=== PATIENT | female | born 1980 | race Caucasian/White ===

== ENCOUNTER 2020-12-17 01:43 | Emergency (ER) | payer OTHER ==
[~2020-12-17 01:43] MED LIST: NORCO 7.5-3251 EACH PO
[2020-12-17 02:43] LABS: HEMOGLOBIN 13.1 gm/dl (12.3-15.3); RED BLOOD COUNT 3.99 M/UL (4.00-5.10); WHITE BLOOD COUNT 6.9 K/UL (4.5-11.0)
[2020-12-17 02:58] LABS: BUN/CREATININE RATIO 15 (0-10)
[2020-12-17] MEDS ORDERED: LODINE CAP 300300 MG PO (04:37)
[2020-12-17] MEDS ORDERED: ZOFRAN ODT 4 MG4 MG PO (04:37)
[2020-12-17] MEDS ORDERED: BENTYL 20MG TAB20 MG PO (04:37)
== END 2020-12-17 06:15 | disposition home or self-care (01) ==
LOC: ER1 01:43
PROVIDERS: Physician Assistant
DX: R10.11 Right upper quadrant pain (principal); R10.12 Left upper quadrant pain; R10.816 Epigastric abdominal tenderness; E87.6 Hypokalemia; F17.210 Nicotine dependence, cigarettes, uncomplicated
CPT/HCPCS: 80053; 81001; 82150; 82550; 82553; 83605; 83690; 83874; 84484; 84703; 85025; 87086; 93005; 96374; 96375; 99284; J1885; J2405; Q9967